=== PATIENT | female | born 1995 | race Caucasian/White ===

== ENCOUNTER 2019-09-08 05:46 | Emergency (ER) | payer OTHER ==
[~2019-09-08] VITALS: Ht 175.3 cm; Wt 61.2 kg
[~2019-09-08 05:46] MED LIST: Bactrim Ds Tab1 EACH PO; Ceftriaxon2 GM/50 ML IV; MUCUS ER600 MG; TRUBIOTIC; Verotin-Gr Cap1 EACH; Zofran Odt4 MG SL; Zovirax400 MG PO
[2019-09-08] MEDS ORDERED: Bactrim Ds Tab1 EACH PO (07:36)
[2019-09-08] MEDS ORDERED: CEPH500 PO (07:36)
== END 2019-09-08 07:59 | disposition home or self-care (01) ==
LOC: ER 05:46
DX: L02.414 Cutaneous abscess of left upper limb (principal); F11.10 Opioid abuse, uncomplicated; I10 Essential (primary) hypertension; F17.210 Nicotine dependence, cigarettes, uncomplicated; Z88.0 Allergy status to penicillin; Z88.1 Allergy status to other antibiotic agents
CPT/HCPCS: 87070; 87075; 87077; 87147; 87186; 87205

== ENCOUNTER 2020-10-28 01:24 | Emergency (ER) | payer OTHER ==
[~2020-10-28] VITALS: Ht 162.6 cm; Wt 61.2 kg
[~2020-10-28 01:24] MED LIST changes: +CEPH500 PO
[2020-10-28] MEDS ORDERED: CEPH500 PO (02:37)
[2020-10-28] MEDS ORDERED: Bactrim Ds Tab1 EACH PO (02:37)
== END 2020-10-28 03:02 | disposition home or self-care (01) ==
LOC: ER 01:24
DX: N61.0 Mastitis without abscess (principal); I10 Essential (primary) hypertension; F17.210 Nicotine dependence, cigarettes, uncomplicated; Z88.1 Allergy status to other antibiotic agents
CPT/HCPCS: 93005; 93010; 99283-25; A9270-GY

== ENCOUNTER 2020-10-30 03:30 | Emergency (ER) | payer OTHER ==
[~2020-10-30] VITALS: Ht 162.6 cm; Wt 61.2 kg
== END 2020-10-30 05:00 | disposition home or self-care (01) ==
LOC: ER 03:30
DX: N61.0 Mastitis without abscess (principal); R07.9 Chest pain, unspecified; F11.10 Opioid abuse, uncomplicated; I10 Essential (primary) hypertension; F17.210 Nicotine dependence, cigarettes, uncomplicated; Z88.0 Allergy status to penicillin
CPT/HCPCS: 93005; 93010; 99284-25

== ENCOUNTER 2022-05-10 22:35 | Emergency (ER) | payer OTHER ==
[~2022-05-10] VITALS: Ht 162.6 cm; Wt 61.2 kg
[2022-05-10] MEDS ORDERED: CEPH500 PO (23:19)
== END 2022-05-10 23:32 | disposition home or self-care (01) ==
LOC: ER 22:35
DX: L02.413 Cutaneous abscess of right upper limb (principal); I10 Essential (primary) hypertension; F17.210 Nicotine dependence, cigarettes, uncomplicated; Z88.0 Allergy status to penicillin
CPT/HCPCS: A9270